=== PATIENT | male | born 1985 | race Caucasian/White ===

== ENCOUNTER 2021-11-08 10:10 | Outpatient (CLI) | payer BC, SELFPAY ==
[2021-11-08 20:07] LABS: Hematocrit 46.7 % (42.0-52.0); Hemoglobin 14.4 g/dL (14.0-18.0); Mean Corpuscular HGB Conc 30.8 g/dl (32-36); Mean Corpuscular Hemoglobin 26.1 pg (26-34); Mean Corpuscular Volume 84.8 fl (80-100); Mean Platelet Volume 10.3 fl (7.4-10.4); Platelet Count Result 216 k/mm3 (150-375); Red Blood Count 5.51 M/mm3 (4.6-6.20); Red Cell Distribution Width 15.1 % (11.5-14.5)
[2021-11-08 20:25] LABS: Alanine Aminotransferase 13 U/L (6-50); Albumin Level 4.1 g/dL (3.5-5.1); Alkaline Phosphatase 103 U/L (38-126); Anion Gap 8 mmol/L (8-16); Aspartate Amino Transferase 20 U/L (17-59); Bilirubin,Total 0.4 mg/dL (0.2-1.3); Blood Urea Nitrogen 17 mg/dL (9-20); Carbon Dioxide 24 mmol/L (22-30); Chloride 107 mmol/L (98-107); Cholesterol 148 mg/dL (0-200); Estimated Glomerular Filt Rate > 60; Glucose 111 mg/dL (65-110); HDL Direct 38 mg/dL; Potassium 4.6 mmol/L (3.4-5.0); Sodium 139 mmol/L (137-145); Triglycerides 305 mg/dL (<150)
[2021-11-08 20:29] LABS: LDL Cholesterol Direct < 30 mg/dL
== END 2021-11-08 10:11 | disposition home or self-care (01) ==
PROVIDERS: PCP Family Medicine; Visit Provider Family Medicine
DX: R53.83 Other fatigue (principal); E66.9 Obesity, unspecified
CPT/HCPCS: 36415; 80053; 80061; 85027

== ENCOUNTER 2021-11-11 11:46 | Outpatient (CLI) | payer BC, SELFPAY ==
[2021-11-11 18:11] LABS: Hemoglobin A1C 5.9 % (<5.7)
== END 2021-11-11 11:47 | disposition home or self-care (01) ==
PROVIDERS: PCP Family Medicine; Visit Provider Family Medicine
DX: R73.09 Other abnormal glucose (principal)
CPT/HCPCS: 36415; 83036

== ENCOUNTER 2022-03-06 10:20 | Emergency (ER) | payer BC, SELFPAY ==
[2022-03-06 10:30] VITALS: BP 150/79; PULSE 64; RESP 20; TEMP 36.8; O2SAT 100
[2022-03-06 10:39] VITALS: BP 150/79; PULSE 64; RESP 20; TEMP 36.8; O2SAT 100
--- NOTE | 2022-03-06 11:00 | ED.URI ---
HPI - URI/Sore Throat General Chief Complaint: Upper Respiratory Infection Stated Complaint: allergies and sinus Time Seen by Provider: 03/06/22 11:00 Source: patient and RN notes reviewed Mode of arrival: ambulatory Limitations: no limitations History of Present Illness HPI Narrative: 36-year-old male presented for complaint of sinus pressure and congestion which he states feels like seasonal allergies x3 days. He has taken benadryl and sudafed without relief. He endorses worsening allergies due to farmers cutting the field across his house. He denies cough or sob, fevers or chills. He is scheduled for cardiac cath in 2 days. MD elicited complaint: cough Related Data Home Medications Medication Instructions Recorded Confirmed atorvastatin 40 mg tablet 40 mg PO DAILY 11/08/21 03/06/22 dapagliflozin 10 mg tablet 10 mg PO DAILY 11/08/21 03/06/22 (Farxiga) lacosamide 100 mg tablet (Vimpat) 100 mg PO Q12H 11/08/21 03/06/22 levetiracetam 1,000 mg tablet 1,000 mg PO Q12H 11/08/21 03/06/22 metoprolol succinate 100 mg 100 mg PO DAILY 11/08/21 03/06/22 tablet,extended release 24 hr Allergies Allergy/AdvReac Type Severity Reaction Status Date / Time alprazolam Allergy Hives Verified 03/06/22 10:34 Review of Systems Review of Systems: CONSTITUTIONAL: denies malaise, chills, sweats, fever EYES: Denies visual changes, redness, or discharge ENT: Reports rhinorrhea, congestion, sinus pain CARDIOVASCULAR: Denies chest pain, palpitations, edema RESPIRATORY: Reports post nasal drainage. 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 TMs pearly edmonds with dull light reflex bilaterally; no tragal tenderness. Oropharynx erythematous without lesions or exudate, no drooling, no hoarseness, no trismus, uvula midline. No tripod positioning, muffled voice, soft palate or pharyngeal wall bulging CHEST: Clear to auscultation, breath sounds equal. No respiratory distress, speaks in full sentences. HEART: Regular rate and rhythm. No murmur heard. SKIN: Warm, dry, no rash. NEURO: Alert and oriented x3. PSYCH: Normal mood and affect Course Course Emergency Course: Patient is aware of diagnosis, understands and agrees to treatment plan. Anticipatory guidance given. Patient agrees to follow-up as directed and is aware of reasons to seek care at the emergency department. Portions of this record may have been created with voice recognition software Level of Care: Express Care Visit Vital Signs Vital signs: Vital Signs Temperature 98.2 F 03/06/22 10:30 Pulse Rate 64 03/06/22 10:30 Respiratory Rate 20 03/06/22 10:30 Blood Pressure 150/79 H 03/06/22 10:30 Pulse Oximetry 100 03/06/22 10:30 Oxygen Delivery Room Air 03/06/22 10:30 Temperature 98.2 F 03/06/22 10:39 Pulse Rate 64 03/06/22 10:39 Respiratory Rate 20 03/06/22 10:39 Blood Pressure 150/79 H 03/06/22
== END 2022-03-06 11:12 | disposition home or self-care (01) ==
PROVIDERS: Emergency Provider Nurse Practitioner Family; PCP Family Medicine
DX: J30.9 Allergic rhinitis, unspecified (principal); K21.9 Gastro-esophageal reflux disease without esophagitis; I25.2 Old myocardial infarction
CPT/HCPCS: 99211; G0463

== ENCOUNTER 2022-05-19 12:11 | Outpatient (CLI) | payer BC, SELFPAY ==
[2022-05-19 21:32] LABS: Hemoglobin A1C 6.3 % (<5.7)
== END 2022-05-19 12:12 | disposition home or self-care (01) ==
LOC: ANHBWCLAB 12:13
PROVIDERS: PCP Family Medicine; Visit Provider Family Medicine
DX: E11.9 Type 2 diabetes mellitus without complications (principal)
CPT/HCPCS: 36415; 83036

== ENCOUNTER 2022-07-02 11:56 | Emergency (ER) | payer BC, SELFPAY ==
--- NOTE | 2022-07-02 12:00 | ED.EYEPROB ---
HPI - Eye Problem General Chief complaint: Eye Problems Stated complaint: right eye Source: patient and RN notes reviewed History of Present Illness HPI Narrative: 37 yo M presents to urgent care with visitor at side. Pt states for the last few days, his right eye has been irritating him. Pt reports pain in the inner corner of his eye. States he woke up this morning with some drainage and matting. States he has some visual disturbance but is unsure if it's because of the swelling, obstructing his vision. Denies any fevers, chills, FB sensation, or EOM pain. Pt does not wear contacts or glasses. Related Data Home Medications Medication Instructions Recorded Confirmed atorvastatin 40 mg tablet 40 mg PO DAILY 11/08/21 07/02/22 dapagliflozin 10 mg tablet 10 mg PO DAILY 11/08/21 07/02/22 (Farxiga) lacosamide 100 mg tablet (Vimpat) 100 mg PO Q12H 11/08/21 07/02/22 levetiracetam 1,000 mg tablet 1,000 mg PO Q12H 11/08/21 07/02/22 metoprolol succinate 100 mg 100 mg PO DAILY 11/08/21 07/02/22 tablet,extended release 24 hr clopidogrel 75 mg tablet (Plavix) 75 mg PO DAILY 05/15/22 07/02/22 sacubitril 49 mg-valsartan 51 mg 1 tablet PO BID 05/15/22 07/02/22 tablet (Entresto) Allergies Allergy/AdvReac Type Severity Reaction Status Date / Time alprazolam Allergy Hives Verified 07/02/22 12:02 Review of Systems Review of Systems: CONSTITUTIONAL: Denies fever, chills, or sweats. EYES: REports redness, irritation, swelling, and discharge. ENT: Denies otalgia and sore throat CARDIOVASCULAR: Denies chest pain, palpitations, or edema. RESPIRATORY: Denies cough or dyspnea. GASTROINTESTINAL: Denies abdominal pain, nausea, vomiting, or diarrhea. GENITOURINARY: Denies dysuria or hematuria. SKIN: Denies rash or itching. MUSCULOSKELETAL: Denies back pain, joint pain, or myalgia. NEUROLOGIC: Denies headache, numbness, or weakness. [facility] Past Medical History Medical History Acid reflux Myocardial infarction Family History Family History Father Diabetes mellitus Mother Heart disease Grandparent Diabetes mellitus Heart disease Cerebrovascular accident Grandparent Cerebrovascular accident Social History Social History (Updated 05/15/22 @ 08:25 by Neeta Moss MA) Smoking status: Never smoker Alcohol intake: never Substance use: never Substance use type: does not use Lack of Transportation: No Lack of Food: Never True Current Housing: I Have Housing Concerned About Future Housing: No Difficulty Paying Gas/Electric Bills: No Difficulty Paying for Meds: No Currently Unemployed: No Education: Trade/Vocational Certificate Difficulty w/ Childcare or Family Care: No Living arrangements: with family Occupation/Education: occupation 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 There is no relevant family history pertinent to the patient complaint. Exam Narrative: GENERAL: This is a well-nourished, well-developed patient, in no apparent distress. HEAD: normocephalic, atraumatic. EYES: PERRL. Sclera clear/white. Right, upper, inner eyelid noted to be edematous and erythemic with adjacent stye. Hopper lamp exam demonstrated no abrasion or FB. Lid inversion performed with no acute findings. EARS: External ears normal, auditory canals clear and without drainage, TMs normal without perforation. Hearing grossly intact. NOSE: External nose normal with no obvious nasal discharge, nares without redness, no rhinorrhea. THROAT: Mucous membranes moist, posterior pharynx hermelindo
[2022-07-02 12:01] VITALS: BP 137/79; PULSE 63; RESP 20; TEMP 36.2; O2SAT 99
== END 2022-07-02 12:23 | disposition home or self-care (01) ==
PROVIDERS: Emergency Provider Nurse Practitioner Family; PCP Family Medicine
DX: H00.011 Hordeolum externum right upper eyelid (principal); I25.2 Old myocardial infarction
CPT/HCPCS: 99213; A9270; G0463